=== PATIENT | male | born 1965 | race Caucasian/White ===

== ENCOUNTER 2020-04-10 11:00 | Emergency (ER) | payer OTHER ==
[~2020-04-10 11:00] MED LIST: ASPIRIN EC81 MG PO; ATORVASTATIN CA20 MG PO; AUGMENTIN 500-500 MG PO; BASAGLAR K100 UNIT/1 SQ; DELSYM30 MG/5 ML PO; FLAGYL500 MG PO; FLEXERIL 10 MG10 MG PO; FLONASE 0.05% N16 GM; GLIPIZIDE XL2.5 MG PO; IBUPROFEN600 MG PO; LODINE CAP 300300 MG PO; METRONIDAZOLE500 MG PO; NAPROSYN500 MG PO; NEURONTIN300 MG PO; PERCOCET 5/325 T1 EA PO; TYLENOL 500 MG500 MG PO
[2020-04-10] MEDS ORDERED: NAPROSYN500 MG PO (12:12)
[2020-04-10] MEDS ORDERED: AUGMENTIN 875-1 EACH PO (12:12)
== END 2020-04-10 12:38 | disposition home or self-care (01) ==
LOC: ER1 11:00
DX: K02.9 Dental caries, unspecified (principal); E11.9 Type 2 diabetes mellitus without complications; Z79.4 Long term (current) use of insulin
CPT/HCPCS: 96372; 99282; J1885

== ENCOUNTER 2020-06-19 23:43 | Emergency (ER) | payer OTHER ==
[~2020-06-19 23:43] MED LIST changes: +AUGMENTIN 875-1 EACH PO
[2020-06-20] MEDS ORDERED: NAPROSYN500 MG PO (01:15)
[2020-06-20] MEDS ORDERED: ERYTHROMYCIN OP1 GM OD (01:15)
== END 2020-06-20 01:25 | disposition home or self-care (01) ==
LOC: ER1 23:43
DX: S05.01XA Injury of conjunctiva and corneal abrasion without foreign body, right eye, initial encounter (principal); E11.9 Type 2 diabetes mellitus without complications; I25.2 Old myocardial infarction; Z86.73 Personal history of transient ischemic attack (TIA), and cerebral infarction without residual deficits; X58.XXXA Exposure to other specified factors, initial encounter
CPT/HCPCS: 99283

== ENCOUNTER 2020-08-30 13:03 | Emergency (ER) | payer OTHER ==
[~2020-08-30 13:03] MED LIST changes: +ERYTHROMYCIN OP1 GM OD
[2020-08-30] MEDS ORDERED: NAPROXEN500 MG PO (15:47)
== END 2020-08-30 16:00 | disposition home or self-care (01) ==
LOC: ER1 13:03
DX: S69.91XA Unspecified injury of right wrist, hand and finger(s), initial encounter (principal); E11.9 Type 2 diabetes mellitus without complications; I50.9 Heart failure, unspecified; Z86.73 Personal history of transient ischemic attack (TIA), and cerebral infarction without residual deficits; Z90.89 Acquired absence of other organs; W22.8XXA Striking against or struck by other objects, initial encounter
CPT/HCPCS: 73130; 99283

== ENCOUNTER 2021-05-24 06:05 | Emergency (ER) | payer OTHER ==
[~2021-05-24 06:05] MED LIST changes: +NAPROXEN500 MG PO
[2021-05-24] MEDS ORDERED: CORTISPORIN OTI10 M1 EARLF (06:56)
[2021-05-24] MEDS ORDERED: IBU600 MG PO (06:57)
== END 2021-05-24 07:05 | disposition home or self-care (01) ==
LOC: ER1 06:05
DX: H60.92 Unspecified otitis externa, left ear (principal); E11.9 Type 2 diabetes mellitus without complications
CPT/HCPCS: 99282